=== PATIENT | female | born 1975 | race African-American/Black ===

== ENCOUNTER 2024-10-24 22:44 | Emergency (ER) | payer OTHER ==
[~2024-10-24] VITALS: Ht 167.6 cm; Wt 90.0 kg
[2024-10-25] VITALS: BP 119/74; PULSE 106; RESP 16; TEMP 97.3; O2SAT 100
== END 2024-10-25 02:03 | disposition home or self-care (01) ==
LOC: EMS 22:44
DX: K62.89 Other specified diseases of anus and rectum (principal); Z88.0 Allergy status to penicillin
CPT/HCPCS: 99281; Z7502